=== PATIENT | female | born 1955 | race Hispanic/Latino ===

== ENCOUNTER 2018-02-01 14:01 | Outpatient (CLI) | payer SELFPAY | END 2018-02-01 14:02 | disposition home or self-care (01) | LOC: BICMAMMO 14:01 → EDSTATUS 14:15 | PROVIDERS: ATTEND Internal Medicine | DX: Z12.31 Encounter for screening mammogram for malignant neoplasm of breast (principal) | CPT/HCPCS: 77067 ==

== ENCOUNTER 2018-10-15 09:25 | Outpatient (CLI) | payer OTHER ==
--- NOTE | 2018-10-15 11:23 | RAD ---
CHEST TWO VIEWS: HISTORY: Positive TB skin test. COMPARISON: None. FINDINGS: The cardiac silhouette and pulmonary vasculature are unremarkable. The mediastinum is midline. Ther e is lobulation at the anterior aspect of the right hemidiaphragm. No confluent air space consolidat ion, pneumothorax, or pleural fluid. Calcified granulomata are consistent with healed granulomatous disease. IMPRESSION: 1. No active cardiopulmonary abnormalities are demonstrated. 2. No evidence of active tuberculosis disease. POS: [facility]
== END 2018-10-15 09:26 | disposition home or self-care (01) ==
LOC: RAD-FRANK 09:25
PROVIDERS: ATTEND Internal Medicine
DX: R76.11 Nonspecific reaction to tuberculin skin test without active tuberculosis (principal)
CPT/HCPCS: 71046